=== PATIENT | male | born 1950 | race Caucasian/White ===

== ENCOUNTER 2016-09-30 12:48 | Outpatient (CLI) | payer OTHER ==
[2016-09-30 14:13] LABS: ALT (SGPT) 24 U/L (0-55); AST (SGOT) 29 U/L (5-34); Alkaline Phosphatase 50 U/L (40-150); Anion Gap 16 mmol/L (10-20); BUN (Urea Nitrogen) 11 mg/dL (8.4-25.7); Bilirubin, Total 0.3 mg/dL (0.2-1.2); Calc. Creatinine Clearance 0 mL/min (70-130); Calcium 9.8 mg/dL (7.8-10.44); Carbon Dioxide 22 mmol/L (23-31); Chloride 96 mmol/L (98-107); Estimated GFR-MDRD 78; Globulin 3.2 g/dL (2.4-3.5); Protein, Total 7.7 g/dL (5.8-8.1)
[2016-09-30 19:08] LABS: LDH 166 U/L (125-220); Phosphorus 3.6 mg/dL (2.3-4.7)
[2016-10-01 12:28] LABS: Bilirubin, Direct 0.1 mg/dL (0.1-0.3)
== END 2016-09-30 12:49 | disposition home or self-care (01) ==
LOC: BURLAB 12:48
PROVIDERS: ATTEND Nurse Practitioner Acute Care
DX: C64.2 Malignant neoplasm of left kidney, except renal pelvis (principal); C78.02 Secondary malignant neoplasm of left lung; C79.89 Secondary malignant neoplasm of other specified sites
CPT/HCPCS: 36415; 80053; 82248; 83615; 84100; 84550

== ENCOUNTER 2018-11-10 11:14 | Outpatient (CLI) | payer MEDICARE ==
--- NOTE | 2018-11-10 21:41 | RAD ---
LUMBAR SPINE THREE VIEWS 11/10/18 Three views show mild scoliosis convexed right. There is an anterior compression of the T12 vertebral body that mainly involves the superior end plate. This is probably not acute. There is also an anter ior compression of L4 involving the superior end plate in the anterior superior corner of the vertebr a. This may be a bit more recent. MRI would better assess this. The disc spaces are all normal in hei ght. Calcific changes are seen in the aorta. The SI joints are unremarkable. IMPRESSION: Mild anterior compressions of T12 and L4, both involving superior end plates. The L4 compression may be slightly more recent than the T12 one. POS: HOME
== END 2018-11-10 11:15 | disposition home or self-care (01) ==
LOC: BURRAD 11:14
PROVIDERS: ATTEND Family Medicine
DX: M54.5 Low back pain (principal)
CPT/HCPCS: 72100